=== PATIENT | male | born 1990 | race Caucasian/White ===

== ENCOUNTER 2018-10-22 00:07 | Emergency (ER) | payer OTHER ==
--- NOTE | 2018-10-22 00:11 | ED ---
Substance Abuse/Use - HPI Summary HPI Summary: A 28 y/o male brought in by [facility] presents to [facility] after being unresponsive after heroin use tonight. Per director of real estate, the patient was given Narcan at around 11:30 and then EMS arrived. The patient is being arrested tonight. At triage the patient rated his pain as a 5/10 in severity. He has an abscess on his right arm. - History Of Current Complaint Stated Complaint: OVERDOSE PER EMS Hx Obtained From: Patient, EMS, Other: - police Onset/Duration of Drug/ETOH Abuse: Hours Ingestion History: Type/Name Of Drug - heroin Overdose Characteristics: IV Timing Of Abuse: Intermittent Severity Initially: Moderate Severity Currently: Moderate Aggravating Factor(s): Nothing Alleviating Factor(s): Nothing Associated Signs And Symptoms: Other: - abscess - Allergies/Home Medications Allergies/Adverse Reactions: Allergies Allergy/AdvReac Type Severity Reaction Status Date / Time No Known Allergies Allergy Verified 12/26/15 21:32 PMH/Surg Hx/FS Hx/Imm Hx Sensory History: Denies: Hx Deafness Psychiatric History: Reports: Hx Substance Abuse - Surgical History Surgery Procedure, Year, and Place: none reported - Family History Known Family History: Positive: Non-Contributory - Social History Alcohol Use: None Alcohol Amount: Pt denies Substance Use Type: Reports: Heroin Substance Use Comment - Amount & Last Used: daily - last use 12/26/15 1700 Smoking Status (MU): Current Every Day Smoker Review of Systems Positive: Fever - 100.2 at triage Positive: Other - positive: abscess right arm Psychological: Other - positive: heroin overdose All Other Systems Reviewed And Are Negative: Yes Physical Exam - Summary Physical Exam Summary: Appearance: Well-appearing, Well-nourished, lying in bed comfortably. Pt noted to be febrile. Skin: Warm, dry, no obvious rash. There is a tense abscess without pointing on the right proximal forearm. Eyes: sclera anicteric, no conjunctival pallor ENT: mucous membranes moist, pharynx appears normal Neck: Supple, nontender Respiratory: Clear to auscultation, no signs of respiratory distress Cardiovascular: Normal S1, S2. No murmurs. Normal distal pulses in tibial and radial bilaterally. Abdomen: Soft, nontender, normal active bowel sounds present Musculoskeletal: Normal, Strength/ROM Intact Neurological: A&Ox3, awake and alert, mentation is normal, speech is fluent and appropriate Psychiatric: affect is normal, does not appear anxious or depressed Triage Information Reviewed: Yes Vital Signs Reviewed: Yes Procedures - Incision and Drainage Right Proximal Arm Site: Right proximal forearm Anesthesia: Lidocaine Instrument(s): Scalpel - with drainage of a large amount of foul smelling pus Course/Dx - Course Course Of Treatment: A 28 y/o male brought in by [facility] and [facility] presents to [facility] after being unresponsive after heroin use tonight. Per director of real estate, the patient was given Narcan at around 11:30 and then EMS arrived. The patient is being arrested tonight. At triage the patient rated his pain as a 5/ 10 in severity. He has an abscess on his right arm. An incision and drainage was done on the right proximal forearm. In the ED course the patient was given Lidocaine INJ and Marcaine INJ along with Bactrim PO. The patient will be discharged with a prescription for Bacrim and is agreeable with this plan. - Diagnoses Provider Diagnoses: Accidental heroin overdose, Abscess of forearm, right Discharge - Sign-Out/Discharge Documenting (check all that apply): Patient Departure - DC Patient Received Moderate/Deep Sedation with Procedure: No - Discharge Plan Condition: Good Disposition: LAW ENFORCEMENT/COURT Prescriptions: Sulfamethox/Trimethoprim DS* [Bactrim DS 800/160 TAB*] 1 tab PO BID #14 tab Patient Education Materials: Abscess (ED), Incision and Drainage (ED), Opioid Safety (ED) Referrals: No Primary Care Phys,NOPCP [Primary Care Provider] - Additional Instructions: Bactrim is twice a day for 5 days. Change the dressing as needed as the wound drains more blood and pus. It should dry up in the next couple of days. - Billing Disposition and Condition Condition: GOOD Disposition: Law Enforcement/Court - Attestation Statements Document Initiated by Scribe: Yes Documenting Scribe: Ronan Arita Provider For Whom Olya is Documenting (Include Credential): Jim Lopez MD Scribe Attestation: Ronan Middleton, scribed for Jim Lopez MD on 10/25/18 at 0935. Scribe Documentation Reviewed: Yes Provider Attestation: The documentation as recorded by the Ronan zayas accurately reflects the service I personally performed and the decisions made by meJim MD Status of Scribe Document: Viewed
[2018-10-22] MEDS ORDERED: Lidocaine 2% EPI 1:200000 MPF* 10 ML VIAL INJ ONE (00:23)
[2018-10-22] MEDS ORDERED: Bupivacaine 0.5% W/EPI SDV* 10 ML VIAL INJ ONE (00:23)
[2018-10-22] MEDS ORDERED: Sulfamethox/Trimethoprim DS 800/160* TAB PO ONE (00:27)
[2018-10-22] MEDS ORDERED: Bupivacaine 0.5% W/EPI SDV* 30 ML VIAL INJ ONE (00:30)
[2018-10-22] MEDS ORDERED: Lidocaine 2% EPI 1:200000 MPF*10-20 ML VIAL INJ ONE (00:30)
[2018-10-22 01:21] VITALS: BP 129/69
== END 2018-10-22 01:19 ==
LOC: ED 00:07
DX: T40.601A Poisoning by unspecified narcotics, accidental (unintentional), initial encounter (principal); L02.413 Cutaneous abscess of right upper limb; Y92.9 Unspecified place or not applicable; F17.200 Nicotine dependence, unspecified, uncomplicated
CPT/HCPCS: 10060; 99282; A9270-GY

== ENCOUNTER 2019-10-15 16:52 | Emergency (ER) | payer SELFPAY ==
--- NOTE | 2019-10-15 17:33 | UC ---
Respiratory Complaint HPI - HPI Summary HPI Summary: 29-year-old male who has had cold symptoms over the past 4 days. He is a smoker. He states that his employer wanted him tested for Covid-19 before he can return to work tomorrow. Patient states he has productive cough of greenish sputum. He denies any shortness of breath or difficulty breathing. - History of Current Complaint Chief Complaint: UCGeneralIllness Stated Complaint: COUGH, CONGESTION Time Seen by Provider: 10/15/19 16:56 Hx Obtained From: Patient Onset/Duration: Gradual Onset Timing: Intermittent Episodes Severity Initially: Mild Severity Currently: Mild Pain Intensity: 0 Character: Cough: Productive - Productive cough of greenish sputum. No shortness of breath. Aggravating Factors: Deep Breaths Alleviating Factors: Nothing Associated Signs And Symptoms: Positive: Wheezing, URI, Nasal Congestion - Allergies/Home Medications Allergies/Adverse Reactions: Allergies Allergy/AdvReac Type Severity Reaction Status Date / Time No Known Allergies Allergy Verified 10/15/19 16:57 Home Medications: Home Medications Azithromyxin BHARATH (NF) [Z-Bharath (Zithromax) 250 mg tabs #6] 2 tab PO .TODAY, THEN 1 DAILY #6 tab 10/15/19 [Rx] Dm/PE/Acetaminophen/Doxylamine [[place] Plus Day-Night Cp] 2 each PO BID PRN 10/15/19 [History Confirmed 10/15/19] Guaifenesin/Dextromethorphan [Guaifenesin Dm Syrup] 10 ml PO Q4H PRN 10/15/19 [ History Confirmed 10/15/19] predniSONE 10 mg TAB [Deltasone 10 MG TAB*] 10 mg PO DAILY 12 Days #30 tab 10/14 [Rx] PMH/Surg Hx/FS Hx/Imm Hx Previously Healthy: Yes - Surgical History Surgery Procedure, Year, and Place: none reported - Family History Known Family History: Positive: Non-Contributory - Social History Lives: With Family Alcohol Use: Occasionally Alcohol Amount: Pt denies Substance Use Type: Heroin Substance Use Comment - Amount & Last Used: last used Smoking Status (MU): Current Every Day Smoker Type: Cigarettes Amount Used/How Often: 1 ppd Length of Time of Smoking/Using Tobacco: 15 yrs Have You Smoked in the Last Year: Yes Household Exposure Type: Cigarettes Review of Systems All Other Systems Reviewed And Are Negative: Yes ENT: Positive: Nasal Discharge, Sinus Congestion Respiratory: Positive: Cough Is Patient Immunocompromised?: No Physical Exam - Summary Physical Exam Summary: I spoke with the patient over the phone while he was in the room. His cough sounds like bronchitis. He is not in any distress per the nurse's observance. Triage Information Reviewed: Yes Vital Signs Reviewed: Yes Respiratory: Positive: No respiratory distress, No accessory muscle use Psychological Exam: Normal Respiratory Course/Dx - Course Course Of Treatment: This medical visit was done by talking with the patient in the room and also hearing him cough while he was in the room. The nurse obtained rapid flu test which was negative he also obtained Covid testing. Patient was given a note to remain out of work until Covid test results are back and he was given the Covid testing instructions. Patient was advised to stop smoking. I am going to put him on tapering prednisone as well as Zithromax. He is to follow-up with his primary care provider or [facility] if he has any worsening symptoms. - Differential Dx/Diagnosis Provider Diagnosis: Bronchitis Discharge ED - Sign-Out/Discharge Documenting (check all that apply): Patient Departure All imaging exams completed and their final reports reviewed: No Studies - Discharge Plan Condition: Good Disposition: HOME Prescriptions: Azithromyxin BHARATH (NF) [Z-Bharath (Zithromax) 250 mg tabs #6] 2 tab PO .TODAY, THEN 1 DAILY #6 tab predniSONE 10 mg TAB [Deltasone 10 MG TAB*] 10 mg PO DAILY 12 Days #30 tab Patient Education Materials: Acute Bronchitis (ED) Forms: COVID-19 Tested & Isolation Referrals: [facility] [Outside] No Primary Care Phys,NOPCP [Primary Care Provider] - Additional Instructions: Increase fluids, take the prednisone with food, follow-up at [facility] or with your primary care provider if no improvement in 3 or 4 days. You are to self-isolate according to the instructions given to you until you receive a report about your Covid testing. Stop smoking. - Billing Disposition and Condition Condition: GOOD Disposition: Home
[2019-10-15 17:48] VITALS: BP 112/62
[2019-10-15 17:53] LABS: Influenza A Molecular Negative (Negative); Influenza B Molecular Negative (Negative)
== END 2019-10-15 18:16 | disposition home or self-care (01) ==
LOC: UCCORT 16:52
DX: J40 Bronchitis, not specified as acute or chronic (principal); Z20.828 Contact with and (suspected) exposure to other viral communicable diseases; F17.210 Nicotine dependence, cigarettes, uncomplicated
CPT/HCPCS: 99213; G0463; U0002